=== PATIENT | female | born 1980 | race Caucasian/White ===

== ENCOUNTER 2019-02-26 07:00 | Day surgery (SDC) | payer OTHER | END 2019-02-26 13:00 | disposition home or self-care (01) | LOC: CIR.AMB 07:00 | DX: O02.1 Missed abortion (principal) ==

== ENCOUNTER 2019-05-31 06:00 | Day surgery (SDC) | payer OTHER | END 2019-05-31 10:45 | disposition home or self-care (01) | LOC: CIR.AMB 06:00 | DX: O02.1 Missed abortion (principal) ==

== ENCOUNTER 2019-11-08 08:00 | Day surgery (SDC) | payer OTHER ==
[2019-11-08] MEDS ORDERED: DOXYCYCLINE HY100 MG PO (11:32)
== END 2019-11-08 15:30 | disposition home or self-care (01) ==
LOC: CIR.AMB 08:00
PROVIDERS: ATTEND Obstetrics & Gynecology
DX: O02.1 Missed abortion (principal); Z20.828 Contact with and (suspected) exposure to other viral communicable diseases